=== PATIENT | female | born 1940 | race Caucasian/White ===

== ENCOUNTER → 2020-03-06 | Outpatient (CLI) | payer MEDICARE, BC ==
--- NOTE | 2020-03-09 08:16 | PE ---
EXAMINATION TYPE: PET CT fusion skull to thigh DATE OF EXAM: 03/06/2020 COMPARISON: Outside chest CT report January 30, 2020. HISTORY: Solitary pulmonary nodule. Recent abnormal CT right lung per patient. TECHNIQUE: Following the intravenous administration of 12.51 mCi of F-18 FDG, whole body images are performed from the skull base to the midthigh. Images are reviewed on the computer in the coronal, a xial, and sagittal planes. Reconstructed rotating images are created on independent workstation and reviewed on the computer. A noncontrast CT is performed in conjunction with the PET scan. SCAN: Initial Scan FINDINGS: SKULL BASE AND NECK: No areas of abnormal hypermetabolic uptake. CHEST, MEDIASTINUM, AND HILAR REGION: There is background moderate underlying emphysematous change re demonstrated greatest in the upper lungs. Corresponding to outside CT report the right lower lobe pos teriorly has an area of hypermetabolic mass measuring approximately 4.4 x 5.8 cm transversely axial i mage 112. Length of neoplasm roughly 10 cm. Max SUV is 13.26. There is abnormal roughly 1 cm hypermetabolic right hilar lymph node axial image 101 with max SUV of 5.14. There is abnormal subcarinal hypermetabolic lymph node measuring 1.6 x 1.5 cm axial image 92, max SUV is 3.97. There is ametabolic tiny right pleural effusion. No additional areas of abnormal hypermetabolic uptak e. No left-sided nodules. ABDOMEN AND PELVIS: Normal excretion is present. No areas of abnormal hypermetabolic uptake. No hyper metabolic adrenal masses. OSSEOUS STRUCTURES: No areas of abnormal hypermetabolic uptake. OTHER CT: Moderate calcified plaque bilateral carotid bulb level. Prominent right and left pulmonary arteries, CT finding consistent with underlying pulmonary artery h ypertension. Moderate to severe three-vessel coronary artery calcification which is noted marked of u nderlying coronary artery disease. Large hiatal hernia redemonstrated. Cortical thinning in both kidneys with simple appearing thin-walled cysts. Findings consistent with p roducts of chronic medical renal disease. Aortoiliac graft. Pessary type device in the Vaginal canal. Sigmoid colonic diverticulosis. Scoliotic curvature with multilevel spurring and disc space narrowing. Moderate narrowing in both hip joints. Facet arthropathy lower lumbar spine. IMPRESSION: Confirmation of primary lung carcinoma as detailed above. CT-guided biopsy for tissue con firmation should be considered. TNM STAGING T4, N2,M0 AJCC STAGING IIIB
== END | disposition home or self-care (01) ==
LOC: RADPETMAIN 15:04
PROVIDERS: ATTEND Internal Medicine Critical Care Medicine
DX: C34.31 Malignant neoplasm of lower lobe, right bronchus or lung (principal)
CPT/HCPCS: 78815; A9552

== ENCOUNTER → 2020-04-07 | Outpatient (CLI) | payer MEDICARE, BC | END | disposition home or self-care (01) | LOC: LABWHC1 09:33 | PROVIDERS: ATTEND Internal Medicine Critical Care Medicine | DX: Z11.59 Encounter for screening for other viral diseases (principal) | CPT/HCPCS: 87635 ==

== ENCOUNTER → 2021-09-03 | Outpatient (CLI) | payer MEDICARE, BC ==
--- NOTE | 2021-09-08 16:46 | PE ---
Nuclear medicine PET/CT HISTORY: Lung cancer, subsequent, right lung, C 34.90 Patient received 10 mCi F-18 FDG intravenously in delayed scanning was performed from skull base to t he mid size. A localization and attenuation correction CT scan was performed. Correlation to prior nuclear medicine PET/CT 03/06/2020 Chest and neck: The mass within the posterior right hemithorax has decreased markedly in size measuri ng 2.9 x 3.8 cm as compared to prior when it measured approximately 5.8 x 4.4 cm, SUV currently is 5. 3 where as on prior exam SUV was 13. There is no pleural or pericardial effusion. Emphysematous posada es are again noted. Hiatal hernia with partial intrathoracic stomach is again seen. There is no media stinal, axillar, or hilar adenopathy evident. Aorta shows atheromatous change and is tortuous. ABDOMEN: There is no evident adrenal mass on the right, on the left there is some prominence of the a drenal gland, SUV is only 1.8 however, similar appearance to prior exam. There is no retroperitoneal adenopathy. Patient shows aorto bifemoral bypass graft change. No evident liver mass, cystic focus wi thin the left lobe is stable. Uptake along the bowel is likely physiologic. Bladder is somewhat displ aced towards the right. No pelvic adenopathy or free fluid. Osseous structures show no discrete lesion. Uptake along the shoulders is likely inflammatory. IMPRESSION: There is interval response patient's lung mass.
== END | disposition home or self-care (01) ==
LOC: RADPETMAIN 16:27
PROVIDERS: ATTEND Internal Medicine Hematology & Oncology
DX: C34.81 Malignant neoplasm of overlapping sites of right bronchus and lung (principal)
CPT/HCPCS: 78815; A9552

== ENCOUNTER → 2022-03-11 | Outpatient (CLI) | payer MEDICARE, BC ==
--- NOTE | 2022-03-15 06:14 | PE ---
EXAMINATION TYPE: PET CT fusion skull to thigh DATE OF EXAM: 03/11/2022 COMPARISON: PET/CT September 03, 2021 and older studies HISTORY: Right-sided lung cancer diagnosed in March 09, 2020 completed chemotherapy in 2020 TECHNIQUE: Following the intravenous administration of 9.64 mCi of F-18 FDG, whole body images are p erformed from the skull base to the midthigh. Images are reviewed on the computer in the coronal, ax ial, and sagittal planes. Reconstructed rotating images are created on independent workstation and r eviewed on the computer. A localization and attenuation correction CT is performed in conjunction w ith the PET scan. Blood glucose level equals 95. SCAN: Subsequent Scan FINDINGS: SKULL BASE AND NECK: No new areas of abnormal hypermetabolic uptake. CHEST, MEDIASTINUM, AND HILAR REGION: There is moderate to advanced underlying emphysematous change r edemonstrated greatest in the upper lungs. There is enlarging posterior right lower lung hypermetabol ic 5.7 x 4.3 cm mass axial image 98 with increasing hypermetabolic uptake, max SUV is 9.23 axial imag e 95 versus 5.3 on prior. No new areas of abnormal hypermetabolic uptake. ABDOMEN AND PELVIS: Normal excretion is present. No definitive new areas of abnormal hypermetabolic u ptake. No new hypermetabolic adrenal masses. Persistent thickened a metabolic left adrenal gland cons istent with benign lipid rich hyperplasia. Mild nonspecific bowel uptake left abdomen and pelvis on c urrent study. OSSEOUS STRUCTURES: No areas of new abnormal hypermetabolic uptake. OTHER CT: Moderate calcified plaque bilateral carotid bulb level. Stable left subclavian Mediport cat heter. Prominent pulmonary arteries redemonstrated, CT finding consistent with underlying pulmonary artery h ypertension. Moderate to severe three-vessel coronary artery calcification which is noted marker for underlying coronary artery disease. Large hiatal hernia or intrathoracic stomach redemonstrated. Cortical thinning in both kidneys with simple appearing thin-walled cysts. Findings consistent with p roducts of chronic medical renal disease. Aortoiliac graft redemonstrated. Mild to moderately distend ed bladder current study. Sigmoid colonic diverticulosis. Scoliotic curvature with multilevel spurring and disc space narrowing. Moderate narrowing in both hip joints. Facet arthropathy lower lumbar spine. Spondylolisthesis L1-L2 level. IMPRESSION: Local neoplastic progression as detailed above. No new adenopathy or metastatic disease.
== END | disposition home or self-care (01) ==
LOC: RADPETMAIN 09:04
PROVIDERS: ATTEND Internal Medicine Hematology & Oncology
DX: C34.81 Malignant neoplasm of overlapping sites of right bronchus and lung (principal); Z92.21 Personal history of antineoplastic chemotherapy
CPT/HCPCS: 78815; A9552

== ENCOUNTER → 2022-08-15 | Outpatient (CLI) | payer MEDICARE, BC ==
--- NOTE | 2022-08-15 13:37 | CT ---
EXAMINATION TYPE: CT chest wo con DATE OF EXAM: 08/15/2022 COMPARISON: PET CT scan 03/11/2022 HISTORY: f/u lung ca CT DLP: 130 mGycm. Automated Exposure Control for Dose Reduction was Utilized. TECHNIQUE: CT scan of the thorax is performed without IV contrast. FINDINGS: LUNGS: There is severe diffuse centrilobular emphysema. Mass within the right lower lobe now measures 3.1 x 2.7 cm and previously measured 5.7 x 4.3 cm. There is development of a small right pleural eff usion. Calcification near the right lung base may be related to the diaphragm or pleura.. MEDIASTINUM: Lack of IV contrast is noted to limit evaluation for mediastinal and especially hilar ad enopathy. There are no definitive greater than 1 cm hilar or mediastinal lymph nodes. Atherosclerotic change of the aorta. Dense coronary artery calcifications seen. A port catheter incidentally noted. Mild cardiomegaly. OTHER: Hypertrophic and degenerative changes of the spine. Scoliosis noted. There are bilateral hypod ense renal lesions which are most likely on the basis of simple cysts. Some are too small to characte rize by noncontrast technique including a upper pole right renal lesion. Vascular calcifications in t he renal hilum are noted there is postsurgical change suggestive of previous aortic surgery. Atherosc lerotic change aorta. Large hiatal hernia noted. There is thickening of the left adrenal gland. IMPRESSION: 1. Interval reduction in size of a right lower lobe mass which now measures 3.1 x 2.7 cm and previous ly measured 5.7 x 4.3 cm. 2. Large hiatal hernia. 3. Severe diffuse emphysematous changes.
== END | disposition home or self-care (01) ==
LOC: RADCTMAIN 11:33
PROVIDERS: ATTEND Radiology Radiation Oncology
DX: C34.31 Malignant neoplasm of lower lobe, right bronchus or lung (principal); K44.9 Diaphragmatic hernia without obstruction or gangrene; J43.9 Emphysema, unspecified
CPT/HCPCS: 36415; 71250; 82565; 84520

== ENCOUNTER → 2022-11-10 | Outpatient (CLI) | payer MEDICARE, BC | END | disposition home or self-care (01) | LOC: LABMAIN 10:22 | PROVIDERS: ATTEND Internal Medicine Cardiovascular Disease | DX: Z53.9 Procedure and treatment not carried out, unspecified reason (principal) ==

== ENCOUNTER → 2022-11-10 | Outpatient (CLI) | payer MEDICARE, BC ==
[2022-11-10 10:47] LABS: African American GFR (CKD) 52 (>60 ml/min/1.73 sqM); Anion Gap 7 mmol/L; Blood Urea Nitrogen 33 mg/dL (7-17); Calcium 10.1 mg/dL (8.4-10.2); Carbon Dioxide 25 mmol/L (22-30); Chloride 108 mmol/L (98-107); Glucose 89 mg/dL (74-99); Non-African American GFR(CKD) 46 (>60 ml/min/1.73 sqM); Potassium 4.4 mmol/L (3.5-5.1); Sodium 140 mmol/L (137-145)
--- NOTE | 2022-11-10 11:40 | CT ---
EXAMINATION TYPE: CT chest wo con DATE OF EXAM: 11/10/2022 COMPARISON: 08/15/2022 HISTORY: f/u lung ca CT DLP: 141.[address] of the chest was performed with lung and mediastinal window settings submitted. The la ck of contrast limits evaluation of the vascular, mediastinal and parenchymal structures including th e upper abdomen. LUNGS: Severe diffuse emphysematous changes redemonstrated.Right lower lobe mass persists although is smaller in size and measures 2.6 x 2.7 cm versus prior measurement of 3.1 x 2.7 cm. Increasing right pleural effusion is noted. No additional masses or nodules seen. MEDIASTINUM/GLADIS: Large fixed hiatal hernia is redemonstrated. Thoracic aorta is of normal caliber w ith limited evaluation given lack of contrast. The heart is not enlarged. No evidence for mediastin al mass. No lymph nodes greater than 1cm. UPPER ABDOMEN: No significant abnormality is seen. OTHER: No significant other abnormality. IMPRESSION: 1. Right lower lobe mass persists although is smaller in size. Increasing right basilar pleural effu arun.
== END | disposition home or self-care (01) ==
LOC: RADCTMAIN 09:55
PROVIDERS: ATTEND Internal Medicine Hematology & Oncology
DX: C34.91 Malignant neoplasm of unspecified part of right bronchus or lung (principal); J90 Pleural effusion, not elsewhere classified
CPT/HCPCS: 36415; 71250; 80048

== ENCOUNTER → 2023-03-09 | Outpatient (CLI) | payer MEDICARE, BC ==
--- NOTE | 2023-03-09 13:44 | CT ---
EXAMINATION TYPE: CT chest wo con CT DLP: 137.8 mGycm, Automated exposure control for dose reduction was used. DATE OF EXAM: 03/09/2023 1:00 PM COMPARISON: 11/10/2022 CT chest, PET/CT 03/11/2022 CLINICAL INDICATION:Female, 82 years old with history of C34.90 MALIGNANT NEOPLASM OF UNSP PART OF UN SP BRO, f/u lung ca TECHNIQUE: Multiple axial images were obtained through the chest. Sagittal and coronal reformats were created for review. Contrast used: none. Oral contrast used: none. FINDINGS: LUNGS/ PLEURA: The right lower lung scarring/post treatment changes are not significantly changed morphology from . Suspected underlying atelectasis within this region. Differentiating vessels from atelectas is is difficult without IV contrast. Trace right pleural effusion. There is severe centrilobular emphysema changes within the lungs. AIRWAY: Patent and unremarkable. HEART: The heart is mildly enlarged for size there is severe coronary artery calcifications and aorti c valve leaflet calcifications. MEDIASTINUM: No gross evidence of adenopathy. Large hiatal hernia is present. VASCULATURE: No aortic aneurysm. Left chest wall [id number] with tip terminating in the superior vena cava. Intra-abdominal fusiform abdominal aortic dilation up to 3.1 cm. MUSCULOSKELETAL: No acute osseous abnormalities SOFT TISSUES/LYMPH NODES: Unremarkable. LOWER NECK: No significant findings. UPPER ABDOMEN: Partially visualized aortobiiliac stent graft. Renal sinus calcifications could be vas culature in etiology versus obstructing calculi. IMPRESSION: 1. Stable appearance of the right lower lung posttreatment changes. No evidence for significant brooks ge or lymphadenopathy. 2. Moderate to severe emphysema changes. 3. Trace right pleural effusion similar to prior. 4. Large hiatal hernia.
== END | disposition home or self-care (01) ==
LOC: RADCTMAIN 10:57
PROVIDERS: ATTEND Internal Medicine Hematology & Oncology
DX: Z03.89 Encounter for observation for other suspected diseases and conditions ruled out (principal); C34.90 Malignant neoplasm of unspecified part of unspecified bronchus or lung; J43.2 Centrilobular emphysema; J90 Pleural effusion, not elsewhere classified; K44.9 Diaphragmatic hernia without obstruction or gangrene
CPT/HCPCS: 71250; 82565; 84520

== ENCOUNTER → 2023-09-07 | Outpatient (CLI) | payer MEDICARE, BC ==
[2023-09-07 12:54] LABS: African American GFR (CKD) 35 (>60 ml/min/1.73 sqM); Blood Urea Nitrogen 58 mg/dL (7-17); Non-African American GFR(CKD) 31 (>60 ml/min/1.73 sqM)
--- NOTE | 2023-09-07 14:05 | CT ---
EXAMINATION TYPE: CT chest wo con DATE OF EXAM: 09/07/2023 COMPARISON: 03/09/2023, 11/10/2022, 03/11/2022 HISTORY: lung CA CT DLP: 351 mGycm. Automated Exposure Control for Dose Reduction was Utilized. TECHNIQUE: CT scan of the thorax is performed without IV contrast. FINDINGS: LUNGS: The lungs are grossly clear, there is no concerning parenchymal consolidative pneumonia identi fied. There is no pleural effusion or pneumothorax seen. The tracheobronchial tree is patent. Adva nced emphysematous changes are seen. An 8 mm nodule along the right lower lobe image 38. 2 mm subpleu ral nodule adjacent to the fissure of the left lower lobe has a benign appearance. Additional tiny gautam bpleural micronodules nodules in the right upper lobe also have a benign appearance MEDIASTINUM: Lack of IV contrast is noted to limit evaluation for mediastinal and especially hilar ad enopathy. There are no definitive greater than 1 cm hilar or mediastinal lymph nodes. No cardiomega ly or pericardial effusion is seen. The heart is mildly enlarged and there is coronary artery calcification and calcification at the leve l of the aortic valve. Atherosclerotic change of the aorta. Ectasia of the aorta. There is right lowe r lobe consolidation extending from the hilum with small pleural effusion similar to the prior exam. There is a debris within the esophagus extending to the upper thoracic region. Patient at risk for as piration. OTHER: Large hiatal hernia. Scoliotic curvature and chemosis of the spine was multilevel degenerative disc disease. Diffuse osteopenia. Mediport catheter is noted. Partially included in the [id number] is upper abdominal findings suspi cious for previous aortic stent graft placement. Renal cortex are thinned with dense vascular calcifi cations. Bilateral hypodense lesions are indeterminate but most likely related to simple cysts. There is a lar ge hiatal hernia. Stable bilateral adrenal gland thickening. IMPRESSION: 1. Area of mass or consolidation right lower lobe corresponding to the area of previous hypermetaboli c uptake by PET/CT is similar to the prior exam. 2. Large hiatal hernia. There is fluid attenuation debris distending the upper thoracic spine. Patien t felt the risk for aspiration. 3. Severe bullous emphysematous changes.
== END | disposition home or self-care (01) ==
LOC: RADCTMAIN 11:31
PROVIDERS: ATTEND Internal Medicine Hematology & Oncology
DX: C34.90 Malignant neoplasm of unspecified part of unspecified bronchus or lung (principal); Z03.89 Encounter for observation for other suspected diseases and conditions ruled out; K44.9 Diaphragmatic hernia without obstruction or gangrene; J43.8 Other emphysema
CPT/HCPCS: 71250; 82565; 84520

== ENCOUNTER → 2024-03-07 | Outpatient (CLI) | payer MEDICARE, BC ==
--- NOTE | 2024-03-08 07:03 | CT ---
EXAMINATION TYPE: CT chest wo con DATE OF EXAM: 03/07/2024 COMPARISON: 09/07/2023 HISTORY: f/u lung ca CT DLP: 282.9 mGycm, Automated exposure control for dose reduction was used. CONTRAST: Performed injected with 0 mL of Isovue 300. TECHNIQUE: Axial images were obtained at 5 mm thick sections. Reconstructed images are reviewed on [employer] computer in the coronal plane. FINDINGS: Portion of the thyroid visualized is normal. There is advanced emphysematous changes. Small right pleural effusion is present. There appears to be an enlarging 1.6 cm nodule adjacent right pleural effusion, series 4 image 34. No enlarged mediastinal or hilar adenopathy is evident. The ascending aorta diameter at the level o f the main pulmonary artery is 3.1 cm. The main pulmonary artery diameter at the bifurcation is 2.[address] sections are obtained through the upper abdomen. There is a large hiatal hernia with herni ation of stomach and left posterior chest. Abdominal Aortic stent is partially visualized. IMPRESSION: 1. Enlarging nodule right lower lobe adjacent to a small right pleural effusion. 2. Herniation of stomach into the posterior left thorax.
== END | disposition home or self-care (01) ==
LOC: RADCTMAIN 13:38
PROVIDERS: ATTEND Internal Medicine Hematology & Oncology
DX: C34.90 Malignant neoplasm of unspecified part of unspecified bronchus or lung (principal); J90 Pleural effusion, not elsewhere classified; R91.1 Solitary pulmonary nodule; K45.8 Other specified abdominal hernia without obstruction or gangrene; D50.9 Iron deficiency anemia, unspecified
CPT/HCPCS: 71250

== ENCOUNTER → 2024-05-02 | Outpatient (CLI) | payer MEDICARE, BC ==
[2024-05-02 15:06] LABS: African American GFR (CKD) 30 (>60 ml/min/1.73 sqM); Blood Urea Nitrogen 66 mg/dL (7-17); Non-African American GFR(CKD) 26 (>60 ml/min/1.73 sqM)
--- NOTE | 2024-05-06 17:00 | CT ---
EXAMINATION TYPE: CT chest wo con CT DLP: 364 mGycm, Automated exposure control for dose reduction was used. DATE OF EXAM: 05/02/2024 5:01 PM COMPARISON: Multiple CT chest with most recent 03/07/2024. CLINICAL INDICATION:Female, 83 years old with history of C34.90 LUNG CA; PHH, hx of Lung Ca. TECHNIQUE: Multiple axial images were obtained through the chest without IV contrast. Lack of IV or o ral contrast limits evaluation of solid and hollow organ viscera. . Coronal and sagittal reformats re viewed. FINDINGS: LUNGS/ PLEURA: Elevation of the right hemidiaphragm. Small right pleural effusion with associated pa rtial right lower lobe atelectasis redemonstrated. Moderate centrilobular emphysematous changes with upper lobe predominance. No pneumothorax. No focal consolidation. Similar masslike region within the right lower lobe measuring 3.3 x 2.4 cm which was previously FDG avid on prior PET/CT (series 3, imag e 39). Stable adjacent nodule measuring up to 1.2 cm from most recent prior exam (series 3, image 40) . No new pulmonary nodules or masses identified. AIRWAY: Patent and unremarkable.. HEART: Mildly enlarged. No pericardial effusion. Aortic valve calcifications. Mild three-vessel coron indy artery calcifications.. . MEDIASTINUM: No pathologically enlarged lymph nodes identified in the mediastinum or hilum. VASCULATURE: No aortic aneurysm. Left anterior chest wall Mediport catheter with distal catheter ter minating in the mid SVC. Moderate atherosclerotic calcification of the aorta and its branches. Tortuo us appearance of the distal thoracic aorta. Partial visualization of a stent within the visualized ab dominal aorta. MUSCULOSKELETAL: No acute osseous abnormalities. Increased cervical kyphosis. Grade one anterolisthes is of C2 on C3 and C3 on C4. Mild dextroscoliosis of the thoracic spine. Mild to moderate multilevel degenerative disease and facet arthropathy. Prominent Schmorl's nodes involving the superior endplate s of the T11 and L1 vertebral bodies. No aggressive osseous lesion. SOFT TISSUES/LYMPH NODES: Unremarkable. LOWER NECK: No significant findings. UPPER ABDOMEN: Bilateral probable renal cysts are demonstrated with findings of cortical thinning att ributed to chronic medical renal disease. Vascular opacification identified bilaterally. Large hiatal hernia containing at least three fourths of the stomach. Similar thickening of the left adrenal glan d. IMPRESSION: 1. Similar appearance of treated right lower lobe lung mass with additional stable suggested satelli te nodule from most recent exam. Continued follow-up versus PET/CT should be considered. 2. Small right pleural effusion redemonstrated. 3. No lymphadenopathy. 4. Large hiatal hernia redemonstrated.
== END | disposition home or self-care (01) ==
LOC: RADCTMAIN 14:21
PROVIDERS: ATTEND Internal Medicine Hematology & Oncology
DX: J90 Pleural effusion, not elsewhere classified (principal); C34.90 Malignant neoplasm of unspecified part of unspecified bronchus or lung; K44.9 Diaphragmatic hernia without obstruction or gangrene; D50.9 Iron deficiency anemia, unspecified; R91.8 Other nonspecific abnormal finding of lung field
CPT/HCPCS: 36415; 71250; 82565; 84520

== ENCOUNTER → 2024-05-09 | Outpatient (CLI) | payer MEDICARE, BC ==
--- NOTE | 2024-05-09 11:03 | MR ---
EXAMINATION TYPE: MR brain wo/w con DATE OF EXAM: 05/09/2024 COMPARISON: None HISTORY: Lung cancer, sudden change in mood. CONTRAST: Performed utilizing 5 mL intravenous Gadavist gadolinium contrast. TECHNIQUE: Multiplanar, multiecho imaging on a 3.0 Reema magnet is performed through the brain. Stud y is performed within 24 hours of arrival to the hospital. The craniovertebral junction is normal. The pituitary is normal. Optic chiasm is visualized appears normal. Diffusion-weighted imaging is performed. No abnormal hyperintensity is present to suggest an acute i ntracranial infarct or acute ischemic change. There are multiple scattered subcortical white matter changes. There is a larger subcortical change i n the right proximal temporal lobe. Subcortical infarct could be considered. No mass effect is eviden t. This Ventricles and sulci are prominent for the patient age. Following contrast no suspicious enhancement is evident. IMPRESSION: 1. No suspicious changes to suggest metastatic disease. 2. There are multiple bilateral subcortical and deep white matter hyperintensities which could be on the basis of chronic white matter ischemic change. 3. There is a more focal larger subcortical white matter change proximal right temporal lobe may be a n old subcortical infarct or microvascular ischemic change.
== END | disposition home or self-care (01) ==
LOC: RADMRIMAIN 09:30
PROVIDERS: ATTEND Internal Medicine Hematology & Oncology
DX: C34.90 Malignant neoplasm of unspecified part of unspecified bronchus or lung (principal)
CPT/HCPCS: 70553; A9585